=== PATIENT | male | born 1990 | race Caucasian/White ===

== ENCOUNTER 2024-07-19 16:58 | Emergency (ER) | payer SELFPAY ==
[~2024-07-19] VITALS: Ht 177.8 cm; Wt 75.0 kg
[2024-07-19 17:02] VITALS: BP 124/57; PULSE 79; RESP 18; TEMP 36.8; O2SAT 100
[2024-07-19] MEDS: HYDROCODONE/ACETAMINOPHEN 5/325MG TABLET PO STA (17:32)
[2024-07-19] MEDS ORDERED: IBUP-2029 MT (17:45)
== END 2024-07-19 18:10 | disposition left against medical advice (07) ==
LOC: ER 16:58
DX: M25.511 Pain in right shoulder (principal); Z88.2 Allergy status to sulfonamides
CPT/HCPCS: 73030; 99283